=== PATIENT | female | born 1980 | race Two or more races ===

== ENCOUNTER 2017-06-16 14:25 | Emergency (ER) | payer MEDICAID, OTHER ==
--- NOTE | 2017-06-16 15:21 | ED Physician Chart ---
ED Chief Complaint/HPI - Patient Information Date Seen:: 06/16/17 Time Seen:: 15:16 Chief Complaint:: Cough and fever History of Present Illness:: 36 yo female had cough productive of yellow sputum for 1 week and fever up to 103 for 2 days. Chest pain and mid upper back pain when coughing. Allergies:: Allergies Allergy/AdvReac Type Severity Reaction Status Date / Time ibuprofen AdvReac Verified 10/01/15 17:11 Vitals:: Vital Signs - 8 hr 06/16/17 14:48 Temp 98.7 F HR 121 RR 19 BP 140/76 O2 Sat % 94 ED Past Medical History - Past Medical History Past Medical History: HTN, Other () Social History: Smoker (half pack a day), No Alcohol, No Drug Use Surgical History: Cholecystectomy, other (gastrectomy) Family Medical History - Family Member Mother Hx Family Hypertension: Yes Hx Family Diabetes: Yes ED Physical Exam - Physical Examination Other Respiratory comments:: Rhonchi Extremities: No edema ED Assessment - Assessment General Assessment: Influenza B Otitis media Assessment/Comments:: CBC, CMP, UA, urine drug screen CXR, EKG NS 1L IV bolus Augmentin 875/125 po x 1 D/c home Augmentin 875/125 po bid x 7 days Tamiflu 75mg po bid x 5 days F/u PCP or return to ER if symptoms worsen ED Septic Shock - . Is Septic Shock (SBP<90, OR Lactate>4 mmol\L) present?: No - <6hrs of presentation: Vital Signs: Vital Signs - 8 hr 06/16/17 14:48 Temp 98.7 F HR 121 RR 19 BP 140/76 O2 Sat % 94 ED Reassessment (Disposition) - Reassessment Reassessment Condition:: Improved - Patient Disposition Discharge/Transfer:: Home ED Discharge Plan - Patient Disposition Instructions: Otitis Media, Adult, [id number], VIS, Haemophilus Influenzae Type b (Hib) - CDC
[2017-06-16] MEDS ORDERED: Albuterol/Ipratropium Neb 3 ML AERS HHN ONE ×2 (15:25→15:32)
[2017-06-16 16:02] LABS: % BASOPHILS 0.5 % (0.0-2.0); % EOSINOPHILS 0.3 % (0.0-5.0); % LYMPHOCYTES 30.8 % (20.0-50.0); % MONOCYTES 11.6 % (2.0-10.0); % NEUTROPHILS 56.8 % (40.0-80.0); HEMATOCRIT 42.2 % (41.0-60); HEMOGLOBIN 13.9 gm/dL (12-16); LYMPHOCYTE ABSOLUTE 2.6 Th/cmm (1.5-3.0); MEAN CELL VOLUME 91.3 fl (81-100); MEAN CORPUSCULAR HEMOGLOBIN 30.1 pg (27.0-31.0); MEAN CORPUSCULAR HGB CONC 32.9 pg (28.0-36.0); NEUTROPHILE ABSOLUTE 4.8 Th/cmm (1.8-8.0); PLATELET COUNT 254 Th/cmm (150-400); RED BLOOD COUNT 4.62 Mil/cmm (3.80-5.10); RED CELL DISTRIBUTION WIDTH 12.6 % (11.5-20.0); WHITE BLOOD COUNT 8.4 Th/cmm (4.8-10.8)
[2017-06-16 16:27] LABS: ALB/GLOB RATIO 1.3 (1.0-1.8); ALBUMIN 4.3 gm/dL (3.7-5.3); ALKALINE PHOSPHATASE 74 U/L (34-104); ANION GAP 12.4 (7.0-16.0); BILIRUBIN,TOTAL 0.2 mg/dL (0.3-1.0); BUN - UREA NITROGEN 14 mg/dL (7-25); CALCIUM SERUM 9.4 mg/dL (8.6-10.3); CARBON DIOXIDE 28.6 mEq/L (21.0-31.0); CHLORIDE 96 mEq/L (98-107); CREATININE - SERUM 0.6 mg/dL (0.6-1.2); GFR AFRICAN-AMERICAN > 60.0 ml/min (>90); GFR NON AFRICAN-AMERICAN > 60.0 ml/min; GLUCOSE 103 mg/dL (70-105); SGOT 10 U/L (13-39); SGPT/ALT 10 U/L (7-52); SODIUM SERUM 133 mEq/L (136-145); TOTAL PROTEIN,SERUM 7.6 gm/dL (6.0-8.3)
[2017-06-16] MEDS ORDERED: Sodium Chloride 0.9% 1,000 ML IV ONE (17:46)
[2017-06-16] MEDS ORDERED: Amoxicillin/Clavulanat 875/125 Tab PO ONE (17:52)
[2017-06-16] MEDS ORDERED: Amoxicillin/Clavulanat 875/125 Tab ONE (17:55)
[2017-06-16 19:18] LABS: INF A SCREEN NEG FOR INF A
[2017-06-16 19:21] LABS: INF B SCREEN POS FOR INF B
[2017-06-16 19:52] LABS: URINE MICROSCOPIC INDICATED? YES; URINE SOURCE RANDOM
[2017-06-16 20:22] LABS: AMPHETAMINE URINE POSITIVE (NEGATIVE); BARBITURATES URINE NEGATIVE (NEGATIVE); COCAINE METABOLITE QUAL URINE NEGATIVE (NEGATIVE); METHAMPHETAMINES QUAL URINE POSITIVE (NEGATIVE); PHENCYCLIDINE (PCP) URINE NEGATIVE (NEGATIVE)
[2017-06-16 20:23] LABS: BENZODIAZEPINES QUAL URINE NEGATIVE (NEGATIVE); CANNABINOID THC NEGATIVE (NEGATIVE); METHADONE URINE NEGATIVE (NEGATIVE); OPIATES (MORPHINE) QUAL. URINE NEGATIVE (NEGATIVE); TRICYCLICS (TCA) QUAL. URINE NEGATIVE (NEGATIVE)
[2017-06-16 20:47] LABS: URINE CLARITY SLIGHT CLOUDY (CLEAR); URINE COLOR YELLOW
[2017-06-16 20:48] LABS: URINE BILIRUBIN NEGATIVE (NEGATIVE); URINE BLOOD MODERATE (NEGATIVE); URINE GLUCOSE (UA) NEGATIVE (NEGATIVE); URINE KETONE NEGATIVE (NEGATIVE)
[2017-06-16 20:49] LABS: URINE LEUKOCYTE ESTERASE NEGATIVE (NEGATIVE); URINE NITRATE POSITIVE (NEGATIVE); URINE PROTEIN TRACE mg/dL (NEGATIVE); URINE UROBILINOGEN 0.2 E.U./dL (0.2 - 1.0)
[2017-06-16 20:50] LABS: URINE BACTERIA MANY /hpf (NONE SEEN); URINE EPITHELIAL CELLS FEW /lpf (FEW); URINE WBC 0-2 /hpf (0-5)
--- NOTE | 2017-06-17 09:04 | Diagnostic Imaging Report ---
Portable chest x-ray History: Cough Allowing for portable technique the heart size is normal. No focal pulmonary parenchymal processes. No hilar or mediastinal abnormalities. Mild scoliosis of the thoracolumbar spine convexity to left. Surgical clips noted in the left upper abdomen. Impression: No acute abnormalities.
== END 2017-06-16 19:45 | disposition home or self-care (01) ==
LOC: ER 14:25
DX: J11.1 Influenza due to unidentified influenza virus with other respiratory manifestations (principal); H66.90 Otitis media, unspecified, unspecified ear; I10 Essential (primary) hypertension; F17.200 Nicotine dependence, unspecified, uncomplicated; Z88.5 Allergy status to narcotic agent
CPT/HCPCS: 36415-UA; 71045-TC; 80053-TC; 80307; 81001-TC; 85025-TC; 87086-90; 87804-TC; 93005; 94640; J7030; Z7610